=== PATIENT | female | born 1940 | race Caucasian/White ===

== ENCOUNTER 2018-02-13 12:08 | Outpatient (CLI) | payer MEDICARE, BC, SELFPAY ==
--- NOTE | 2018-02-13 13:21 | DI.RAD.S_ITS ---
PROCEDURE: PAIN SI JOINT INJECTION INDICATIONS: Right SI Joint Injection FINDINGS: Fluoroscopic spot filming was performed to verify placement of spinal needles at the right SI joint level(s), as labeled on the films. Appropriate location(s) of the needle tip(s) was confirmed by injection of iodinated contrast. IMPRESSION: Intraoperative documentation of needle injection at the right inferior sacroiliac joint Dictated by: Nghia Obando M.D. on 02/13/2018 at 15:03 Approved by: Nghia Obando M.D. on 02/13/2018 at 15:04
[2018-02-13 13:22] VITALS: BP 131/45; PULSE 50; RESP 20; TEMP 35.8; O2SAT 100
--- NOTE | 2018-02-13 13:45 | P.PCN_ITS ---
Procedures Date/Time Date of procedure: 02/13/18 Time of procedure: 13:41 General Procedure description: PREOP Dx: Sacroiliac joint pain/DJD POST OP DX: Sacroiliac Joint Pain/DJD Procedures: Fluoroscopic guided contrast controlled right sacroiliac joint injection Physician: Petros Eli D.O. Indications: Nati is referred by for treatment of right sacroiliac joint DJD Description of procedure Fluoroscopic guided, contrast controlled right sacroiliac joint injection Following denial of allergies and review of potential side effects and complications, including, but not necessarily limited to, infection, allergic reaction, local tissue breakdown, temporary as well as permanent nerve injury, paralysis, stroke and possible , the patient indicated that they understood and agreed to proceed. An informed consent was signed by the patient , witnessed by a nurse, and placed in the patient's chart. Additionally, other treatment options including modalities, medications, and physical therapy were reviewed with the patient. After review of previous anaesthesic history and IV conscious sedation the patient was deemed safe to proceed with todays procedure with IV conscious sedation as ASA class II designation. Safety time-out was performed to confirm patient ID, procedure to be performed and site of procedure. IV sedation was not administered while the patient remained responsive to all verbal commands In the prone position following sterile prep and drape of the pelvic region, the hyper lucency on in the inferior aspect of the sacroiliac joint was identified fluoroscopically the skin was anesthetized be a 25 gauge 1 eventual with approximately 2 cc of 1% lidocaine solution. At this point, a 22 gauge 3 in spinal needle was atraumatically introduced and advanced under fluoroscopic guidance into the inferior aspect of the right sacroiliac joint. Following negative aspiration, approximately 0.3 cc of Isovue-300 was injected confirming intra-articular placement without vascular uptake. Radiographic data, including multiple fluoroscopic views of the pelvis, reveals a spinal needle in the sacroiliac joint hyper loosen zone. Subsequent view show flow contrast tear superiorly and inferiorly within the joint capsule without vascular intrathecal uptake. At this point a total of 1 cc or 0 8 of 0.5% Marcaine was combined with 1 cc of 6 mg of betamethasone was injected without incident. The procedure tolerated the procedure well without signs or symptoms of complications prior to transfer to the recovery area continued monitoring without incident. The patient was then transferred to the recovery area with a bur observed for an appropriate time after the injection. The patient reverted a vas score of 7 prior to the procedure and postprocedure vas of 1. Total fluoroscopy time: 22.7 sec Total conscious sedation time: 0min Postop instructions The patient was provided with a pain like to continue to record the patient's response to the target specific procedure prior to the patient's follow-up visit with the referring physician. Additionally, specific post injection care instructions and a contact number to our office were provided if concerns arise regarding the possible complications associated with procedure are suspected. Petros Eli D.O.
[2018-02-13 13:46] VITALS: BP 160/67; PULSE 78; RESP 16; O2SAT 100
[2018-02-13 13:51] VITALS: BP 171/82; PULSE 79; RESP 18; O2SAT 98
[2018-02-13 13:54] VITALS: BP 171/82; PULSE 71; RESP 18; O2SAT 100
[2018-02-13 13:59] VITALS: BP 144/88; PULSE 74; RESP 20; O2SAT 95
[2018-02-13] MEDS: IOPAMIDOL 15 ML VIAL 3 ML INJ (14:07)
[2018-02-13] MEDS: BUPIVACAINE 0.5% (PF) VIAL 2 ML INJ (14:07)
[2018-02-13] MEDS: BETAMETHASONE 30 MG/5 ML MDV 12 MG INJ (14:07)
--- NOTE | 2018-02-14 17:41 | PC.NURSE ---
Called pt for follow up steroid injection. Pt reports feeling great today. Said she slept 4.5 hours last night, had some flushing episodes last night but none today. And she denies any pain. She will continue filling in her pain log for her follow up appt. with Dr. Eli.
== END 2018-02-13 14:03 ==
PROVIDERS: Visit Provider Physical Medicine & Rehabilitation
DX: M51.37 Other intervertebral disc degeneration, lumbosacral region (principal); M53.3 Sacrococcygeal disorders, not elsewhere classified
CPT/HCPCS: 27096; J0702; J2250